=== PATIENT | male | born 1965 | race Two or more races ===

== ENCOUNTER 2025-04-25 08:58 | Inpatient (IN) | payer MEDICAID, OTHER ==
[~2025-04-25] VITALS: Ht 170.2 cm; Wt 79.1 kg
--- NOTE | 2025-04-25 09:18 | ED.PDOC ---
History of present illness HPI Comments HPI: This is a 59 year old male CHAA presenting to the ED with chief complaint of N/V. Patient reports that he has been experiencing general malaise with associated nausea, vomiting, frequent urination, and excessive thirst for the past 2 days. Patient relays that he took his BG this morning and it came back as "high." EMS states that their glucometer read 595 on scene and patient has admitted he has not taken any Metformin for the past 2 weeks. Patient denies any abdominal pain, diarrhea, dizziness, fever, chills, chest pain, or SOB. Initial Vitals BP: HR: RR: O2: Temp: Past Medical History: DM on metformin Past Surgical History: Tonsillectomy Social History: Denies ETOH, smoking, and drug use. Medications: Metformin, non-compliant Allergies: NKDA HPI: Poor Historian. No abdominal pain. REVIEW OF SYSTEMS: CONSTITUTIONAL: Denies acute: fever, diaphoresis, chills, HEAD: Denies acute: headache, photophobia Eyes: Denies acute: Double vision, vision loss, eye pain, eye discharge. EARS: Denies acute: tinnitus, hearing loss, ear discharge, ear pain, THROAT: Denies acute: sore throat, swelling, difficulty swallowing , pain with swallowing, change in voice. NECK: Denies acute: neck pain, neck swelling, stiff neck. HEART: Denies acute : chest pain, palpitations, LUNGS: Denies acute: SOB, wheezing, cough, hemoptysis ABDOMEN: Denies acute: abdominal pain, diarrhea, melena , hematemesis, hematochezia SKIN: Denies acute: rash, redness, lesions, itchiness. EXTREMITIES: Denies acute: calf pain, numbness, tingling, weakness, denies pain in extremity. Denies acute: Low back pain. Neuro: Denies acute: focal neurological deficit, motor or sensory focal neurological deficit, tremors, seizure like activity, confusion, dizziness, change in mental status, loss of bowel or bladder function, cauda equina like symptoms. : Denies acute: dysuria, hematuria, flank pain, PSYCH: Denies acute: hallucination, suicidal ideation, homicidal ideation. PHYSICAL EXAM: General: ----mild----acute distress, awake and alert. Head: normocephalic, atraumatic. Neck: supple, trachea is midline, no swelling. Throat: Normal phonation. Eyes:, no erythema, no purulent discharge, no proptosis, no icterus. Heart: regular rate, regular rhythm, no significant murmur appreciated. Lungs: no apparent respiratory distress, Able to speak in full sentences. No wheezing, no rhonchi, no crackles. No stridors Clear to auscultation bilaterally. Abdomen: non tender to palpation, non distended, soft, no guarding, no rebound, + bowel sounds. Neuro: Awake, Alert, oriented to name, self, situation, follows commands GCS=15. Speech is normal. Skin: no petechia, no purpura, no cyanosis, non-pale, not jaundice. Lower extremities: --no - Pitting edema no deformity, no focal swelling, no calf TTP. Makes eye contact. moves all four extremities. Face: no apparent facial droop. ED COURSE: DISCLAIMER: This medical document was created using an electronic medical record system with voice recognition software and computerized dictation system. Although this document has been carefully reviewed, there might still be some phonetic and typographical errors. Occasional wrong-word or "sound-alike" substitutions may have occurred due to the inherent limitations of voice recognition software. These areas are purely typographical due to imperfections of the software programs and do not reflect any compromise in the patient's medical care. Please read the chart carefully and recognize, using context, where these substitutions have occurred. Chief Complaint: Nausea/Vomiting Time Seen by MD: 09:16 History of present illness: Medications, Allergies Allergies: Coded Allergies: NO KNOWN ALLERGIES (Unverified , 04/25/25) Information Source: Patient, Emergency Med Personnel Mode of Arrival: EMS Was a procedure done? Was a procedure done?: No X-Ray, Labs, Meds, VS Vital Signs Date Time Temp Pulse Resp B/P (MAP) Pulse Ox O2 Delivery O2 Flow Rate FiO2 04/25/25 09:09 98.2 120 18 156/100 95 98.2 Lab Test 04/25/25 09:41 04/25/25 09:27 Range/Units Blood Gas Specimen Type Arterial Blood Gas Sample Site Right radial Blood Gas Patient Temperature 37.0 Arterial Blood Date Drawn [id number] Arterial Blood pH 7.606 *H 7.350-7.450 Arterial Blood Partial Pressure CO2 16.7 *L 35.0-48.0 mmHg Arterial Blood Partial Pressure O2 104.8 83.0-108.0 mmHg Arterial Blood HCO3 16.3 L 21.0-28.0 mmol/L Arterial Blood Oxygen Saturation 98.8 H 94.0-98.0 % Arterial Blood Base Excess -1.6 -2.0-3.0 mmol/L Arterial Blood Oxyhemoglobin 96.8 94.0-98.0 % Arterial Blood Carboxyhemoglobin 1.3 0.5-1.5 % Arterial Blood Methemoglobin 0.7 0.0-1.5 % Tacho Test Yes Blood Gas Total Hemoglobin 16.40 13.5-17.5 g/dL Blood Gas Liter Flow 0.00 Blood Gas Modality Room air FiO2 % 21.0 Blood Gas Critical Value Read Back Yes Blood Gas Notified Whom eduin Lowry Blood Gas Notified Time [id number] Blood Gas Notified By Personal Assistant david lyons White Blood Count 5.4 4.4-10.8 10^3/uL Red Blood Count 4.83 4.5-5.90 10^6/uL Hemoglobin 17.1 13.5-17.5 g/dL Hematocrit 48.4 41.0-53.0 % Mean Corpuscular Volume 100.2 H 80.0-100.0 fL Mean Corpuscular Hemoglobin 35.3 H 28.0-32.0 pg Mean Corpuscular Hemoglobin Concent 35.3 32.0-36.0 g/dL Red Cell Distribution Width 13.9 11.8-14.3 % Platelet Count 131 L 140-450 10^3/uL Mean Platelet Volume 8.8 6.9-10.8 fL Neutrophils (%) (Auto) 75.9 37.0-80.0 % Lymphocytes (%) (Auto) 9.6 L 10.0-50.0 % Monocytes (%) (Auto) 14.4 H 0.0-12.0 % Eosinophils (%) (Auto) 0.0 0.0-7.0 % Basophils (%) (Auto) 0.1 0.0-2.0 % Neutrophils # (Auto) 4.1 1.6-8.6 10 ^3/uL Lymphocytes # (Auto) 0.5 0.4-5.4 10 ^3/uL Monocytes # (Auto) 0.8 0-1.3 10 ^3/uL Eosinophils # (Auto) 0 0-0.8 10 ^3/uL Basophils # (Auto) 0 0-0.2 10 ^3/uL Nucleated Red Blood Cells 0.0 % Sodium Level 122 L 136-145 mmol/L Potassium Level 3.2 L 3.5-5.1 mmol/L Chloride Level 84 L 98-107 mmol/L Carbon Dioxide Level 17 L 20-31 mmol/L Anion Gap 21 H 5-15 Blood Urea Nitrogen 7 L 9-23 mg/dL Creatinine 1.18 0.700-1.30 mg/dL Glomerular Filtration Rate Calc 71 >90 mL/min BUN/Creatinine Ratio 5.9 L 10.0-20.0 Serum Glucose 488 *H 74-106 mg/dL Lactic Acid Level 7.2 *H 0.4-2.0 mmol/L Calcium Level 9.7 8.7-10.4 mg/dL Magnesium Level 1.9 1.6-2.6 mg/dL Total Bilirubin 1.7 H 0.2-1.0 mg/dL Aspartate Amino Transferase (AST) 31 13-40 U/L Alanine Aminotransferase (ALT) 27 7-40 U/L Alkaline Phosphatase 65 46-116 U/L Total Protein 7.9 5.7-8.2 g/dL Albumin 4.9 H 3.2-4.8 g/dL Beta-Hydroxybutyric Acid 4.104 H < 0.4 mmol/L Current Medications Medications (Trade) Dose Ordered Sig/Timmy Route Start Time Stop Time Status Last Admin Sodium Chloride 1,000 ml @ 1,000 mls/hr Q1H ONCE IV 04/25/25 09:15 04/25/25 10:14 DC 04/25/25 09:41 Ondansetron HCl (Zofran) 8 mg ONCE ONCE IV 04/25/25 09:15 04/25/25 09:16 DC 04/25/25 09:41 Insulin Human Regular (InsuLIN R) 10 units ONCE ONCE IV 04/25/25 09:15 04/25/25 09:16 DC 04/25/25 09:44 Time of 1ST Reevaluation: 10:15 Reevaluation 1ST: Unchanged Patient Education/Counseling: Diagnosis, Treatment Family Education/Counseling: No Family Present Departure 1 Departure Time of Disposition: 10:40 Impression: Primary Impression: Hyperglycemia Additional Impression: Elevated lactic acid level Disposition: ADMITTED INPATIENT Critical Care Note Critical Care Time?: No I personally scribed for SUGAR HI DO ([email or web address]) on 04/25/25 at 09:18. Electronically submitted by Garland Garibay ([email or web address]). I personally scribed for SUGAR HI DO ([email or web address]) on 04/25/25 at 10:41. Electronically submitted by Garland Garibay ([email or web address]). SUGAR HI DO Apr 25, 2025 09:18
[2025-04-25] MEDS: SODIUM CHLORIDE 0.9% 1,000 ML IV ONE (09:41)
[2025-04-25] MEDS: ONDANSETRON HCL 4 MG/2 ML VIAL IV ONE (09:41)
[2025-04-25] MEDS: InsuLIN REG 1unit/0.01ml Soln (100units/ml) IV ONE (09:44)
[2025-04-25 09:49] LABS: Hematocrit 48.4 % (41.0-53.0); Hemoglobin 17.1 g/dL (13.5-17.5); Mean Corpuscular Hemoglobin 35.3 pg (28.0-32.0); Mean Corpuscular Volume 100.2 fL (80.0-100.0); Nucleated Red Blood Cells % 0.0 %
[2025-04-25 09:58] LABS: Base Excess -1.6 mmol/L (-2.0-3.0)
[2025-04-25 10:08] LABS: Chloride 84 mmol/L (98-107); Potassium 3.2 mmol/L (3.5-5.1); Sodium 122 mmol/L (136-145)
[2025-04-25 10:17] LABS: Lactic Acid w/Reflex 7.2 mmol/L (0.4-2.0)
[2025-04-25 10:26] LABS: Anion Gap 21 (5-15)
[2025-04-25 10:27] LABS: Calcium 9.7 mg/dL (8.7-10.4)
[2025-04-25 10:29] LABS: Carbon Dioxide 17 mmol/L (20-31)
[2025-04-25 10:32] LABS: Alkaline Phosphatase 65 U/L (46-116); BUN/Creatinine Ratio 5.9 (10.0-20.0); Magnesium 1.9 mg/dL (1.6-2.6); Total Protein 7.9 g/dL (5.7-8.2)
[2025-04-25 10:33] LABS: Alanine Aminotransferase 27 U/L (7-40)
[2025-04-25 10:34] LABS: Albumin 4.9 g/dL (3.2-4.8); Blood Urea Nitrogen 7 mg/dL (9-23)
[2025-04-25 10:35] LABS: Bilirubin, Total 1.7 mg/dL (0.2-1.0); Glucose 488 mg/dL (74-106)
[2025-04-25] MEDS: SODIUM CHLORIDE 0.9% 2,000 ML IV ONE (10:45)
[2025-04-25] MEDS: cefTRIAXone 1GM/50ML D5W 50 ML IV ONE (11:27)
[2025-04-25 11:46] VITALS: PULSE 109; RESP 22; O2SAT 100
[2025-04-25] MEDS ORDERED: ATOR40TA52 PO (12:23)
[2025-04-25] MEDS ORDERED: LISI2.5T47 PO (12:23)
[2025-04-25] MEDS ORDERED: ERGO2000 PO (12:23)
--- NOTE | 2025-04-25 12:29 | DVHHP2 ---
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 He states he noticed that his sugars has been high he checked at one time last week when he is supposed to have an EGD was 480 so they canceled the EGD so he comes in today because he was not feeling well he feels weak numbness malaise frequent urination excessive thirst for the last two days when paramedics were called patient had a high glucose on the monitor patient states he usually takes metformin but he has been out of that patient currently denies any chest pain no shortness with the breath no abdominal pain when evaluating patient's labs and imaging from ED normal saline was given ceftriaxone insulin Zofran no CBC was unremarkable pH was 7.06 CO2 was 16.7 on ABG sodium was 122 potassium was 3.2 chloride was 84 CO2 was 17 gap was 21 glucose was 468 lactate was 7.2 total bili is 1.7 beta age is 4.104. With these findings we will admit patient to [facility] for DKA. Patient nurse had check glucose at bedside was 195. With these findings did order repeat stat CBC ABG. Past Medical History See HPI above Past Surgical History See HPI above Family History Reviewed, non-contributory to the management of this case. Past Social History Patient does smoke CBD oil does admit to alcohol use frequent last use was two days ago no history withdrawal seizure Review of Systems Constitutional: No: Fever, Chills, Sweats, Weakness, Malaise, Other Eyes: No: Pain, Vision change, Conjunctivae inflammation, Eyelid inflammation, Other, Redness ENT: No: Ear pain, Ear discharge, Nose pain, Nose discharge, Nose congestion, Mouth pain, Mouth swelling, Throat pain, Throat swelling, Other Respiratory: No: Cough, Dry, Shortness of breath, SOB with excertion, Wheezing, Hemoptysis, Pleuritic Pain, Sputum, Wheezing, Other Cardiovascular: No: Chest Pain, Palpitations, Orthopnea, Paroxysmal Noc. Dyspnea, Edema, Lt Headedness, Other Gastrointestinal: Nausea, Vomiting, Diarrhea; No: Abdominal Pain, Constipation, Melena, Hematochezia, Other Genitourinary: No Dysuria, No Frequency, No Incontinence, No Hematuria, No Retention, No Other Musculoskeletal: No: other, neck pain, shoulder pain, arm pain, back pain, hand pain, leg pain, foot pain Skin: No: Rash, Lesions, Jaundice, Bruising, Other Neurological: No: Weakness, Numbness, Incoordination, Change in speech, Confusion, Seizures, Other Allergies: Coded Allergies: NO KNOWN ALLERGIES (Unverified , 04/25/25) Medications Current Medications Medications Dose Ordered Sig/Timmy Route Start Time Stop Time Status Last Admin Dose Admin Diagnostic Test (Pha) 1 strip IQ4HR 04/25/25 16:00 UNV Insulin Human Regular IQ4HR SC 04/25/25 16:00 UNV Dextrose 50 ml UD PRN IV 04/25/25 12:30 UNV Sodium Chloride 1,000 ml @ 120 mls/hr Q8H20M IV 04/25/25 12:30 UNV Ondansetron HCl 4 mg Q4HP PRN IV 04/25/25 12:30 UNV Docusate Sodium 100 mg BIDPRN PRN PO 04/25/25 12:30 UNV Morphine Sulfate 2 mg Q4HPRN PRN IV 04/25/25 12:30 UNV Enoxaparin Sodium 40 mg DAILY SC 04/25/25 12:30 UNV Nitroglycerin 0.4 mg Q5MINP PRN SL 04/25/25 12:30 UNV Patient Own Medication 1 tab QPM PO 04/25/25 18:00 UNV Patient Own Medication 1 tab DAILY PO 04/26/25 10:00 UNV Exam Vital Signs Vital Signs Date Time Temp Pulse Resp B/P (MAP) Pulse Ox O2 Delivery O2 Flow Rate FiO2 04/25/25 11:46 109 22 100 Room Air* 0 21 04/25/25 11:46 97.7 131/83 (99) 97.7 General Appearance: Alert, Oriented X3, Cooperative, No acute distress HEENT: Atraumatic, PERRLA, EOMI, Mucous membr. moist/pink Respiratory: Clear to auscultation, Normal air movement Cardiovascular: Regular rate, Normal S1, Normal S2, No murmurs Abdominal: Normal bowel sounds, Soft, No tenderness, No hepatospenomegaly, No masses Extremities: No clubbing, No cyanosis, No edema, Normal pulses, No tenderness/swelling Skin: No rashes, No breakdown, No significant lesion Neuro: Normal gait, Normal speech, Strength at 5/5 X4 ext, Normal tone, Sensation intact, Cranial nerves 3-12 NL Psych/Mental Status: Mental status NL, Mood NL Labs/Xrays I reviewed labs, imaging CT scan abdomen pelvis, EKG and all diagnostic studies on this patient from ED records and the medical chart Labs Test 04/25/25 12:09 04/25/25 11:27 04/25/25 09:41 04/25/25 09:27 Range/Units POC Glucose 194 H 70-106 mg/dl Lactic Acid Level 3.9 *H 0.4-2.0 mmol/L Blood Gas Specimen Type Arterial Blood Gas Sample Site Right radial Blood Gas Patient Temperature 37.0 Arterial Blood Date Drawn [id number] Arterial Blood pH 7.606 *H 7.350-7.450 Arterial Blood Partial Pressure CO2 16.7 *L 35.0-48.0 mmHg Arterial Blood Partial Pressure O2 104.8 83.0-108.0 mmHg Arterial Blood HCO3 16.3 L 21.0-28.0 mmol/L Arterial Blood Oxygen Saturation 98.8 H 94.0-98.0 % Arterial Blood Base Excess -1.6 -2.0-3.0 mmol/L Arterial Blood Oxyhemoglobin 96.8 94.0-98.0 % Arterial Blood Carboxyhemoglobin 1.3 0.5-1.5 % Arterial Blood Methemoglobin 0.7 0.0-1.5 % Tacho Test Yes Blood Gas Total Hemoglobin 16.40 13.5-17.5 g/dL Blood Gas Liter Flow 0.00 Blood Gas Modality Room air FiO2 % 21.0 Blood Gas Critical Value Read Back Yes Blood Gas Notified Whom eduin Lowry Blood Gas Notified Time [id number] Blood Gas Notified By Bookkeeper Assistant david lyons White Blood Count 5.4 4.4-10.8 10^3/uL Red Blood Count 4.83 4.5-5.90 10^6/uL Hemoglobin 17.1 13.5-17.5 g/dL Hematocrit 48.4 41.0-53.0 % Mean Corpuscular Volume 100.2 H 80.0-100.0 fL Mean Corpuscular Hemoglobin 35.3 H 28.0-32.0 pg Mean Corpuscular Hemoglobin Concent 35.3 32.0-36.0 g/dL Red Cell Distribution Width 13.9 11.8-14.3 % Platelet Count 131 L 140-450 10^3/uL Mean Platelet Volume 8.8 6.9-10.8 fL Neutrophils (%) (Auto) 75.9 37.0-80.0 % Lymphocytes (%) (Auto) 9.6 L 10.0-50.0 % Monocytes (%) (Auto) 14.4 H 0.0-12.0 % Eosinophils (%) (Auto) 0.0 0.0-7.0 % Basophils (%) (Auto) 0.1 0.0-2.0 % Neutrophils # (Auto) 4.1 1.6-8.6 10 ^3/uL Lymphocytes # (Auto) 0.5 0.4-5.4 10 ^3/uL Monocytes # (Auto) 0.8 0-1.3 10 ^3/uL Eosinophils # (Auto) 0 0-0.8 10 ^3/uL Basophils # (Auto) 0 0-0.2 10 ^3/uL Nucleated Red Blood Cells 0.0 % Sodium Level 122 L 136-145 mmol/L Potassium Level 3.2 L 3.5-5.1 mmol/L Chloride Level 84 L 98-107 mmol/L Carbon Dioxide Level 17 L 20-31 mmol/L Anion Gap 21 H 5-15 Blood Urea Nitrogen 7 L 9-23 mg/dL Creatinine 1.18 0.700-1.30 mg/dL Glomerular Filtration Rate Calc 71 >90 mL/min BUN/Creatinine Ratio 5.9 L 10.0-20.0 Serum Glucose 488 *H 74-106 mg/dL Calcium Level 9.7 8.7-10.4 mg/dL Magnesium Level 1.9 1.6-2.6 mg/dL Total Bilirubin 1.7 H 0.2-1.0 mg/dL Aspartate Amino Transferase (AST) 31 13-40 U/L Alanine Aminotransferase (ALT) 27 7-40 U/L Alkaline Phosphatase 65 46-116 U/L Total Protein 7.9 5.7-8.2 g/dL Albumin 4.9 H 3.2-4.8 g/dL Beta-Hydroxybutyric Acid 4.104 H < 0.4 mmol/L SEPSIS Sepsis Screen Date sepsis recognized/suspect: Apr 25, 2025 Time Sepsis recognized/suspect: 1151 Recent Procedure: No On Antibiotic Therapy: No Respiratory Rate >20: Yes Heart Rate >90: Yes Temp<36 C (96.8 F) or >38.3 C: No SBP <90 or MAP <65 mmHG: No New Acute Mental Status Change: No Is the patient on CPAP, BIPAP,: No Physician Orders Telephonic Rn (04/25/25 ) Urinalysis (04/25/25 09:10) Electrocardigram (04/25/25 09:10) Abg W/ Co-Ox (04/25/25 09:58) Sodium Chloride 0.9% (04/25/25 10:45) Abg W/ Co-Ox (04/25/25 12:10) Basic Metabolic Panel (04/25/25 12:10) Lactic Acid W/ Reflex Order (04/25/25 12:10) Glucose Blood (Accu-Chek Comfort Curve T (04/25/25 16:00) Insulin R (Human) (Insulin R) (04/25/25 16:00) Dextrose 50% Syringe (04/25/25 12:30) Admit (04/25/25 12:22) Allergies (04/25/25 12:22) Code Status (04/25/25 12:22) Sodium Chloride 0.9% (04/25/25 12:30) Ondansetron Hcl (Zofran) (04/25/25 12:30) Docusate Sodium Capsule (Colace Capsule) (04/25/25 12:30) Complete Blood Count (04/26/25 04:00) Comprehensive Metabolic Panel (04/26/25 04:00) Cardiac Diet-2gna,Lofat,Lochol (04/25/25 Lunch) Condition: Stable (04/25/25 12:22) BRP (04/25/25 12:22) Morphine Sulfate Injection (04/25/25 12:30) Sequential Compression Device (04/25/25 ) Enoxaparin Sodium (Lovenox) (04/25/25 12:30) Nitroglycerin Sublingual (Ntrostat Subli (04/25/25 12:30) Stat Ekg For Chest Pain (04/25/25 12:22) Notify Of Changes From Base (04/25/25 12:22) Yarn Wrapper For 24 Hours (04/25/25 12:22) Emergency Dysrhythmia Protocol (04/25/25 12:22) Rhythm Strips Once Every Shift (04/25/25 12:22) Oxygen By Nasal Cannula (04/25/25 12:22) Potassium Er Tablet (Klor-Con Tablet) (04/25/25 12:30) (Nf) Atorvastatin Calcium (04/25/25 18:00) (Nf) Lisinopril (04/26/25 10:00) Urine Sodium (04/25/25 12:27) Osmolality Urine (04/25/25 12:27) Osmolality, Serum (04/25/25 12:) Vital Signs Date Time Temp Pulse Resp B/P (MAP) Pulse Ox O2 Delivery O2 Flow Rate FiO2 04/25/25 11:46 109 22 100 Room Air* 0 21 04/25/25 11:46 97.7 109 22 131/83 (99) 100 97.7 04/25/25 09:09 98.2 120 18 156/100 95 98.2 Laboratory Tests Test 04/25/25 09:27 04/25/25 11:27 Lactic Acid Level 7.2 mmol/L (0.4-2.0) *H 3.9 mmol/L (0.4-2.0) *H White Blood Count 5.4 10^3/uL (4.4-10.8) Medications Medications Dose Ordered Sig/Timmy Route Start Time Stop Time Status Last Admin Dose Admin Ceftriaxone Sodium 50 ml @ 100 mls/hr ONCE ONCE IV 04/25/25 10:45 04/25/25 11:14 DC 04/25/25 11:27 100 MLS/HR Insulin Human Regular 10 units ONCE ONCE IV 04/25/25 09:15 04/25/25 09:16 DC 04/25/25 09:44 10 UNITS Ondansetron HCl 8 mg ONCE ONCE IV 04/25/25 09:15 04/25/25 09:16 DC 04/25/25 09:41 8 MG Sodium Chloride 1,000 ml @ 1,000 mls/hr Q1H ONCE IV 04/25/25 09:15 04/25/25 10:14 DC 04/25/25 09:41 1,000 MLS/HR Sodium Chloride 2,000 ml @ 1,000 mls/hr Q2H ONCE IV 04/25/25 10:45 04/25/25 12:44 04/25/25 10:45 1,000 MLS/HR Assessment/Plan Assessment/Plan Acute DKA without coma history of type 2 diabetes beta oh elevated, gap elevated bicarb low, and anion gap, elevated blood glucose IV hydration ns(2L ) provided in er Initiated DKA protocol Every hour Accu-Check Administer sodium bicarb if pH less than 6.9 BMP every 6 hours until gap Replace electrolyte as needed Repeat ABG now NPO xcept ice chips Diabetic education pt was given insulin 10 units iv Acute hypovolemic shock in setting of dka and dehydration ivf bolus of 2 liters provided cont ivf consider levophed keep SBP greater than 90 mmHg fu lactic acute metabolic acidosis likely in setting of acute dka found on cmp ordered abg start bicarb drip if PH <6.9 monitor for worsening numbers acute Hyponatremia likely in setting of DKA/vomiting cont iv hydration Monitor sodium ordered serum os and urine os follow up results Acute tachycardia in setting of dka cont ivf hydration fu mag and phos level acute hyperkalemia no treatment at this time will hydrate and follow up k as providing hydration monitor k acute etoh abuse ordered ativan prn ordered librium can consult sw for resources fen/ppx no dvt ppx since ambulatory npo until dka improves protonix for stress ulcer prevention ivf will consider insulin drip considering the labs results plan admit to icu for management of dka Plan discussed with: Patient My Orders Orders - SANGEETA VARGAS DNP Procedure Category Date Status Time Abg W/ Co-Ox RT 04/25/25 Logged 12:10 Basic Metabolic Panel LAB 04/25/25 Logged 12:10 Lactic Acid W/ Reflex LAB 04/25/25 Logged Order 12:10 Glucose Blood PHA 04/25/25 Logged (Accu-Chek Comfort 16:00 Insulin R (Human) PHA 04/25/25 Logged (Insulin R) 16:00 Dextrose 50% Syringe PHA 04/25/25 Logged 12:30 Admit ADMIT 04/25/25 Transmitted 12:22 Allergies TOMER 04/25/25 In Process 12:22 Code Status CODE 04/25/25 Transmitted 12:22 Sodium Chloride 0.9% PHA 04/25/25 Logged 12:30 Ondansetron Hcl PHA 04/25/25 Logged (Zofran) 12:30 Docusate Sodium PHA 04/25/25 Logged Capsule (Colace 12:30 Complete Blood Count LAB 04/26/25 Verified 04:00 Comprehensive LAB 04/26/25 Verified Metabolic Panel 04:00 Cardiac DIET 04/25/25 Transmitted Diet-2gna,Lofat,Lochol Lunch Condition: Stable TOMER 04/25/25 In Process 12:22 BRP TOMER 04/25/25 In Process 12:22 Morphine Sulfate PHA 04/25/25 Logged Injection 12:30 Sequential TOMER 04/25/25 In Process Compression Device Enoxaparin Sodium PHA 04/25/25 Logged (Lovenox) 12:30 Nitroglycerin PHA 04/25/25 Logged Sublingual (Ntrostat 12:30 Stat Ekg For Chest [facility] 04/25/25 In Process Pain 12:22 Notify Md Of Changes [facility] 04/25/25 In Process From Base 12:22 Yarn Wrapper For [facility] 04/25/25 In Process 24 Hours 12:22 Emergency Dysrhythmia [facility] 04/25/25 In Process Protocol 12:22 Rhythm Strips Once [facility] 04/25/25 In Process Every Shift 12:22 Oxygen By Nasal RT 04/25/25 Transmitted Cannula 12:22 Potassium Er Tablet PHA 04/25/25 Logged (Klor-Con Tablet) 12:30 (Nf) Atorvastatin PHA 04/25/25 Logged Calcium 18:00 (Nf) Lisinopril PHA 04/26/25 Logged 10:00 Urine Sodium LAB 04/25/25 Transmitted 12:27 Osmolality Urine LAB 04/25/25 Transmitted 12:27 Osmolality, Serum LAB 04/25/25 Transmitted 12:27 Date of Service: Apr 25, 2025 Billing Provider: SANGEETA VARGAS DNP Common Visit Codes: [id number] INP/OBS CARE (HIGH), [id number] CARE 30- 74 MIN (Total critical care time: Approximately 45 minutes This critical care time included obtaining a history; examining the patient; pulse oximetry; ordering and review of studies; arranging urgent treatment with development of a management plan; evaluation of patient's response to treatment; frequent reassessment; and, discussions with other providers.) SANGEETA VARGAS [facility] Apr 25, 2025 12:29
[2025-04-25] MEDS ORDERED: ONDANSETRON HCL 4 MG/2 ML VIAL IV PRN (12:30)
[2025-04-25] MEDS ORDERED: DOCUSATE SOD 100 MG CAP PO PRN (12:30)
[2025-04-25] MEDS ORDERED: NITROGLYCERIN 0.4 MG SL TAB SL PRN (12:30)
[2025-04-25] MEDS ORDERED: DEXTROSE (50%) 50ML SYRG IV PRN (12:30)
[2025-04-25 12:31] LABS: Base Excess -2.0 mmol/L (-2.0-3.0)
[2025-04-25 13:00] LABS: Urine Protein, UAD 1+ (Negative)
[2025-04-25 14:15] LABS: Anion Gap 13 (5-15); Calcium 8.1 mg/dL (8.7-10.4); Carbon Dioxide 21 mmol/L (20-31); Chloride 96 mmol/L (98-107); Potassium 3.1 mmol/L (3.5-5.1); Sodium 130 mmol/L (136-145)
[2025-04-25 14:20] LABS: BUN/Creatinine Ratio 8.7 (10.0-20.0)
[2025-04-25 14:22] LABS: Blood Urea Nitrogen 6 mg/dL (9-23); Glucose 211 mg/dL (74-106)
[2025-04-25] MEDS: SODIUM CHLORIDE 0.9% 1,000 ML IV SCH (14:31)
[2025-04-25] MEDS: ENOXAPARIN SOD 40 MG/0.4 ML SYRINGE SC SCH (14:33)
[2025-04-25] MEDS: LISINOPRIL 5 MG TAB PO SCH (14:34)
[2025-04-25] MEDS: POTASSIUM CHL 20 Meq TABLET PO ONE ×2 (14:35→16:16)
[2025-04-25 15:48] LABS: Magnesium 1.6 mg/dL (1.6-2.6)
[2025-04-25] MEDS: ACCU-CHEK COMFORT CURVE STRIP VI SCH (16:26)
[2025-04-25] MEDS: InsuLIN REG 1unit/0.01ml Soln (100units/ml) SC SCH (16:26)
[2025-04-25 17:51] VITALS: BP 114/72; PULSE 94; RESP 19; TEMP 99.7; O2SAT 98
[2025-04-25] MEDS: MORPHINE SULFATE INJ 2 MG/ml SYRG IV PRN (18:41)
[2025-04-25 20:00] VITALS: PULSE 68; PULSE 87; RESP 18; O2SAT 98
[2025-04-25] MEDS: ATORVASTATIN 20 MG TAB PO SCH (20:54)
[2025-04-25 21:00] VITALS: BP 96/67; PULSE 81; RESP 19; TEMP 98.1; O2SAT 95
[2025-04-26] VITALS (8 sets, daily range): BP systolic 96–109; BP diastolic 59–76; PULSE 72–111; RESP 16–19; TEMP 97.3–98.2; O2SAT 92–99
[2025-04-26 08:19] LABS: Hematocrit 42.8 % (41.0-53.0); Hemoglobin 15.3 g/dL (13.5-17.5); Mean Corpuscular Hemoglobin 35.3 pg (28.0-32.0); Mean Corpuscular Volume 99.1 fL (80.0-100.0); Nucleated Red Blood Cells % 0.1 %
[2025-04-26 08:23] LABS: Alanine Aminotransferase 22 U/L (7-40); Albumin 4.1 g/dL (3.2-4.8); Alkaline Phosphatase 46 U/L (46-116); Anion Gap 10 (5-15); BUN/Creatinine Ratio 10.1 (10.0-20.0); Bilirubin, Total 1.2 mg/dL (0.2-1.0); Calcium 9.2 mg/dL (8.7-10.4); Carbon Dioxide 23 mmol/L (20-31); Chloride 101 mmol/L (98-107); Total Protein 6.6 g/dL (5.7-8.2)
[2025-04-26 08:33] LABS: Blood Urea Nitrogen 8 mg/dL (9-23); Glucose 136 mg/dL (74-106); Potassium 3.4 mmol/L (3.5-5.1); Sodium 134 mmol/L (136-145)
--- NOTE | 2025-04-26 14:31 | DVHPN2 ---
Subjective Patient is seen at bedside today, doing well. Reviewed: Care Plan Changes from previous H/P or p: No Changes General: Per HPI Eyes: No Pain, No Vision change, No Conjunctivae inflammation, No Eyelid inflammation, No Other, No Redness ENT: No Ear pain, No Ear discharge, No Nose pain, No Nose discharge, No Nose congestion, No Mouth pain, No Mouth swelling, No Throat pain, No Throat swelling, No Other Cardiovascular: No Chest Pain, No Palpitations, No Orthopnea, No Paroxysmal Noc. Dyspnea, No Edema, No Lt Headedness, No Other Respiratory: No Cough, No Dry, No Shortness of breath, No SOB with excertion, No Wheezing, No Hemoptysis, No Pleuritic Pain, No Sputum, No Other Gastrointestinal: Nausea, Vomiting; No Abdominal Pain; Diarrhea; No Constipation, No Melena, No Hematochezia, No Other Genitourinary: No Dysuria, No Frequency, No Incontinence, No Hematuria, No Retention, No Other Musculoskeletal: No other, No neck pain, No shoulder pain, No arm pain, No back pain, No hand pain, No leg pain, No foot pain Skin: No Rash, No Lesions, No Jaundice, No Bruising, No Other Objective Vitals Vital Signs Date Time Temp Pulse Resp B/P (MAP) Pulse Ox O2 Delivery O2 Flow Rate FiO2 04/26/25 12:37 98.0 77 17 109/75 (86) 97 98.0 04/26/25 08:00 Room Air* 0 21 Intake/Output Intake and Output 04/26/25 07:00 Intake Total 3790 ml Output Total 950 ml Balance 2840 ml Intake Oral 500 ml IV Total 3290 ml Output Urine Total 950 ml Exam GEN: Healthy appearing, well-developed, NAD. HEENT: NC/AT; MMM. CV: RRR, no m/r/g. LUNGS: CTAB, no w/r/c. ABD: Soft, NT/ND, NBS, no masses or organomegaly. EXT: skin Warm, well perfused. no rashes. No clubbing, cyanosis, or edema. NEURO: Ambulating with no limitations. No focal deficits. Diminished positional sensation in feet bilaterally Medications Current Medications Medications Dose Ordered Sig/Timmy Route Start Time Stop Time Status Last Admin Dose Admin Diagnostic Test (Pha) 1 strip IQ4HR 04/25/25 16:00 04/26/25 11:54 1 STRIP Insulin Human Regular IQ4HR SC 04/25/25 16:00 04/26/25 11:58 4 UNITS Dextrose 50 ml UD PRN IV 04/25/25 12:30 Sodium Chloride 1,000 ml @ 120 mls/hr Q8H20M IV 04/25/25 12:30 04/26/25 05:10 120 MLS/HR Ondansetron HCl 4 mg Q4HP PRN IV 04/25/25 12:30 Docusate Sodium 100 mg BIDPRN PRN PO 04/25/25 12:30 Morphine Sulfate 2 mg Q4HPRN PRN IV 04/25/25 12:30 04/26/25 11:55 2 MG Enoxaparin Sodium 40 mg DAILY SC 04/25/25 13:55 04/26/25 09:22 40 MG Nitroglycerin 0.4 mg Q5MINP PRN SL 04/25/25 12:30 Atorvastatin Calcium 40 mg HS PO 04/25/25 22:00 04/25/25 20:54 40 MG Lisinopril 2.5 mg DAILY PO 04/25/25 13:53 04/26/25 09:22 2.5 MG Chlordiazepoxide HCl 50 mg Q12HR PO 04/26/25 10:00 04/26/25 22:01 04/26/25 09:21 50 MG Chlordiazepoxide HCl 25 mg Q12HR PO 04/27/25 10:00 04/27/25 22:01 Chlordiazepoxide HCl 25 mg QAM PO 04/28/25 07:00 04/28/25 07:01 Sodium Chloride 1,000 ml @ 75 mls/hr [id number] IV 04/26/25 13:45 Empaglifozin 10 mg DAILY PO 04/27/25 10:00 Duloxetine HCl 30 mg DAILY PO 04/27/25 10:00 Laboratory Results Laboratory Tests 04/26/25 06:13 Chemistry Test 04/26/25 06:13 Albumin 4.1 g/dL (3.2-4.8) Calcium Level 9.2 mg/dL (8.7-10.4) Total Protein 6.6 g/dL (5.7-8.2) LFT Test 04/26/25 06:13 Alanine Aminotransferase (ALT) 22 U/L (7-40) Alkaline Phosphatase 46 U/L (46-116) Aspartate Amino Transferase (AST) 37 U/L (13-40) Total Bilirubin 1.2 mg/dL (0.2-1.0) H HgA1c, TSH Test 04/26/25 06:13 Hemoglobin A1c 11.9 % A1C (<5.7) H Thyroid Stimulating Hormone (TSH) 1.78 uIU/mL (0.55-4.78) Urinalysis Test 04/25/25 06:49 04/25/25 09:49 Urine Osmolality 624 mOsm/kg Urine Sodium < 10 mmol/L (40-220) L Urine Color Colorless (Yellow) Urine Clarity Clear (Clear) Urine pH 6.0 (5.0-9.0) Urine Specific [place] 1.032 (1.001-1.035) Urine Protein 1+ (Negative) H Urine Ketones 2+ (Negative) H Urine Blood 3+ /uL (Negative) H Urine Nitrite Negative (Negative) Urine Bilirubin Negative (Negative) Urine Urobilinogen Normal mg/dL (Negative) Urine Leukocyte Esterase Negative /uL (Negative) Urine RBC 36 /hpf (0 - 3) Urine Microscopic WBC 1 /HPF (0-3) Urine Squamous Epithelial Cells None seen /hpf (<5) Urine Bacteria None seen /hpf (None Seen) Urine Glucose 4+ mg/dL (Normal) H Labs and/or images reviewed: Labs reviewed by me, Image(s) reviewed by me Assessment/Plan Assessment/Plan 59-year-old male past medical history diabetes neuropathy to hands and feet hyperlipidemia denies any surgical history chief complaint patient states that he has been out of his metformin for the last two weeks he never went to go get a refill. He states he noticed that his sugars has been high he checked at one time last week when he is supposed to have an EGD was 480 so they canceled the EGD so he comes in today because he was not feeling well he feels weak numbness malaise frequent urination excessive thirst for the last two days when paramedics were called patient had a high glucose on the monitor patient states he usually takes metformin but he has been out of that patient currently denies any chest pain no shortness with the breath no abdominal pain when evaluating patient's labs and imaging from ED normal saline was given ceftriaxone insulin Zofran no CBC was unremarkable pH was 7.06 CO2 was 16.7 on ABG sodium was 122 potassium was 3.2 chloride was 84 CO2 was 17 gap was 21 glucose was 468 lactate was 7.2 total bili is 1.7 beta age is 4.104. With these findings we will admit patient to [facility] D[facility]. Patient nurse had check glucose at bedside was 195. With these findings did order repeat stat CBC ABG. 04/26: Patient was here with early DKA, patient was also hyper ventilating causing alkalotic respiratory alkalosis. DKA is now controlled continuing fluids patient denies wanting to go on insulin as his family has had negative outcomes. We will stabilize patient 1 more day as he continues to improve in p.o. tolerance. Need to follow up with her more workup need A1c in labs. Likely discharge tomorrow. Patient will likely be able to go home with added orals, today we will add Jardiance and Cymbalta for diabetic neuropathy. Likely discharge tomorrow. Early DKA Starvation ketosis Diabetes with hyperglycemia and neuropathy Hypotension due to Hypovolemia Metabolic acidosis Hyponatremia Tachycardia Hyperkalemia History of alcohol abuse Continue size and skin Continue IV fluids Patient declining basal insulin We will add Jardiance And Cymbalta neuropathy Diet diabetic Tele Full code Plan discussed with: Patient My Orders Orders - JOHN BOSCH MD Procedure Category Date Status Time Drug Screen LAB 04/26/25 Logged 12:19 Sodium Chloride 0.9% PHA 04/26/25 In Process 13:45 Empagliflozin PHA 04/27/25 In Process (Jardiance) 10:00 Duloxetine Hcl PHA 04/27/25 In Process Capsule (Cymbalta 10:00 Date of Service: Apr 26, 2025 Billing Provider: JOHN BOSCH MD Common Visit Codes: [id number] INP/OBS CARE(HIGH) JOHN BOSCH MD Apr 26, 2025 14:31
[2025-04-26] MEDS: SODIUM CHLORIDE 0.9% 1,000 ML IV SCH (15:12)
[2025-04-26] MEDS: EMPAGLIFLOZIN 10 MG TAB PO ONE (15:13)
[2025-04-27] VITALS (7 sets, daily range): BP systolic 109–132; BP diastolic 70–88; PULSE 74–98; RESP 16–18; TEMP 97.7–97.9; O2SAT 95–99
[2025-04-27] MEDS ORDERED: DEXTROSE (50%) 50ML SYRG IV PRN (01:45)
[2025-04-27] MEDS: InsuLIN REG 1unit/0.01ml Soln (100units/ml) SC SCH (06:54)
[2025-04-27] MEDS: ACCU-CHEK COMFORT CURVE STRIP VI SCH (06:54)
[2025-04-27 08:30] LABS: Alanine Aminotransferase 34 U/L (7-40); Albumin 3.6 g/dL (3.2-4.8); Anion Gap 8 (5-15); BUN/Creatinine Ratio 11.8 (10.0-20.0); Blood Urea Nitrogen 10 mg/dL (9-23); Calcium 9.0 mg/dL (8.7-10.4); Carbon Dioxide 25 mmol/L (20-31); Chloride 105 mmol/L (98-107); Potassium 3.9 mmol/L (3.5-5.1); Sodium 138 mmol/L (136-145); Total Protein 5.7 g/dL (5.7-8.2)
[2025-04-27 08:31] LABS: Alkaline Phosphatase 45 U/L (46-116); Bilirubin, Total 0.7 mg/dL (0.2-1.0); Glucose 183 mg/dL (74-106)
[2025-04-27] MEDS: EMPAGLIFLOZIN 10 MG TAB PO SCH (10:21)
[2025-04-27] MEDS ORDERED: EMPA1TAB PO (16:14)
[2025-04-27] MEDS ORDERED: ASPI-325 PO (16:14)
[2025-04-27] MEDS ORDERED: DULO60CA41 PO (16:14)
[2025-04-27] MEDS ORDERED: SITA25TA3 PO (16:15)
--- NOTE | 2025-04-27 16:28 | DVHDS2 ---
Discharge Summary Date of Admission Apr 25, 2025 at 12:22 Date of Discharge: Apr 27, 2025 Labs/Diagnostic Data: Laboratory Results Test 04/27/25 10:24 04/27/25 07:43 04/26/25 06:13 04/25/25 13:49 POC Glucose 230 mg/dl (70-106) Sodium Level 138 mmol/L (136-145) Potassium Level 3.9 mmol/L (3.5-5.1) Chloride Level 105 mmol/L (98-107) Carbon Dioxide Level 25 mmol/L (20-31) Anion Gap 8 (5-15) Blood Urea Nitrogen 10 mg/dL (9-23) Creatinine 0.85 mg/dL (0.700-1.30) Glomerular Filtration Rate Calc 100 mL/min (>90) BUN/Creatinine Ratio 11.8 (10.0-20.0) Serum Glucose 183 mg/dL (74-106) Calcium Level 9.0 mg/dL (8.7-10.4) Total Bilirubin 0.7 mg/dL (0.2-1.0) Aspartate Amino Transferase (AST) 51 U/L (13-40) Alanine Aminotransferase (ALT) 34 U/L (7-40) Alkaline Phosphatase 45 U/L (46-116) Total Protein 5.7 g/dL (5.7-8.2) Albumin 3.6 g/dL (3.2-4.8) White Blood Count 5.7 10^3/uL (4.4-10.8) Red Blood Count 4.32 10^6/uL (4.5-5.90) Hemoglobin 15.3 g/dL (13.5-17.5) Hematocrit 42.8 % (41.0-53.0) Mean Corpuscular Volume 99.1 fL (80.0-100.0) Mean Corpuscular Hemoglobin 35.3 pg (28.0-32.0) Mean Corpuscular Hemoglobin Concent 35.7 g/dL (32.0-36.0) Red Cell Distribution Width 14.5 % (11.8-14.3) Platelet Count 113 10^3/uL (140-450) Mean Platelet Volume 8.9 fL (6.9-10.8) Neutrophils (%) (Auto) 67.5 % (37.0-80.0) Lymphocytes (%) (Auto) 21.1 % (10.0-50.0) Monocytes (%) (Auto) 10.8 % (0.0-12.0) Eosinophils (%) (Auto) 0.3 % (0.0-7.0) Basophils (%) (Auto) 0.3 % (0.0-2.0) Neutrophils # (Auto) 3.8 10 ^3/uL (1.6-8.6) Lymphocytes # (Auto) 1.2 10 ^3/uL (0.4-5.4) Monocytes # (Auto) 0.6 10 ^3/uL (0-1.3) Eosinophils # (Auto) 0 10 ^3/uL (0-0.8) Basophils # (Auto) 0 10 ^3/uL (0-0.2) Nucleated Red Blood Cells 0.1 % Hemoglobin A1c 11.9 % A1C (<5.7) Thyroid Stimulating Hormone (TSH) 1.78 uIU/mL (0.55-4.78) Plasma/Serum Blood Alcohol < 3.0 mg/dL (<10) Serum Osmolality 277 mOsm/kg (278-298) Phosphorus Level 2.4 mg/dL (2.4-5.1) Magnesium Level 1.6 mg/dL (1.6-2.6) Test 04/25/25 12:24 04/25/25 11:27 04/25/25 09:49 04/25/25 09:41 Blood Gas Specimen Type Arterial Blood Gas Sample Site Right radial Blood Gas Patient Temperature 37.0 Arterial Blood Date Drawn [id number] Arterial Blood pH 7.537 (7.350-7.450) Arterial Blood Partial Pressure CO2 22.1 mmHg (35.0-48.0) Arterial Blood Partial Pressure O2 90.9 mmHg (83.0-108.0) Arterial Blood HCO3 18.3 mmol/L (21.0-28.0) Arterial Blood Oxygen Saturation 97.4 % (94.0-98.0) Arterial Blood Base Excess -2.0 mmol/L (-2.0-3.0) Arterial Blood Oxyhemoglobin 95.8 % (94.0-98.0) Arterial Blood Carboxyhemoglobin 1.0 % (0.5-1.5) Arterial Blood Methemoglobin 0.6 % (0.0-1.5) Tacho Test Yes Blood Gas Total Hemoglobin 14.80 g/dL (13.5-17.5) Blood Gas Modality Room air FiO2 % 21.0 Lactic Acid Level 3.9 mmol/L (0.4-2.0) Urine Color Colorless (Yellow) Urine Clarity Clear (Clear) Urine pH 6.0 (5.0-9.0) Urine Specific [place] 1.032 (1.001-1.035) Urine Protein 1+ (Negative) Urine Ketones 2+ (Negative) Urine Blood 3+ /uL (Negative) Urine Nitrite Negative (Negative) Urine Bilirubin Negative (Negative) Urine Urobilinogen Normal mg/dL (Negative) Urine Leukocyte Esterase Negative /uL (Negative) Urine RBC 36 /hpf (0 - 3) Urine Microscopic WBC 1 /HPF (0-3) Urine Squamous Epithelial Cells None seen /hpf (<5) Urine Bacteria None seen /hpf (None Seen) Urine Glucose 4+ mg/dL (Normal) Blood Gas Liter Flow 0.00 Blood Gas Critical Value Read Back Yes Blood Gas Notified Whom eduin Lowry Blood Gas Notified Time [id number] Blood Gas Notified By david Holden 04/25/25 09:27 04/25/25 06:49 Beta-Hydroxybutyric Acid 4.104 mmol/L (< 0.4) Urine Osmolality 624 mOsm/kg Urine Sodium < 10 mmol/L (40-220) Other Laboratory Tests 04/27/25 07:43 04/26/25 06:13 Brief Hx & Hospital Course: 59-year-old male past medical history diabetes neuropathy to hands and feet hyperlipidemia denies any surgical history chief complaint patient states that he has been out of his metformin for the last two weeks he never went to go get a refill. He states he noticed that his sugars has been high he checked at one time last week when he is supposed to have an EGD was 480 so they canceled the EGD so he comes in today because he was not feeling well he feels weak numbness [place] frequent urination excessive thirst for the last two days when paramedics were called patient had a high glucose on the monitor patient states he usually takes metformin but he has been out of that patient currently denies any chest pain no shortness with the breath no abdominal pain when evaluating patient's labs and imaging from ED normal saline was given ceftriaxone insulin Zofran no CBC was unremarkable pH was 7.06 CO2 was 16.7 on ABG sodium was 122 potassium was 3.2 chloride was 84 CO2 was 17 gap was 21 glucose was 468 lactate was 7.2 total bili is 1.7 beta age is 4.104. With these findings we will admit patient to [facility]. Patient nurse had check glucose at bedside was 195. With these findings did order repeat stat CBC ABG. 04/26: Patient was here with early DKA, patient was also hyper ventilating causing alkalotic respiratory alkalosis. DKA is now controlled continuing fluids patient denies wanting to go on insulin as his family has had negative outcomes. We will stabilize patient 1 more day as he continues to improve in p.o. tolerance. Need to follow up with her more workup need A1c in labs. Likely discharge tomorrow. Patient will likely be able to go home with added orals, today we will add Jardiance and Cymbalta for diabetic neuropathy. Likely discharge tomorrow. 04/27: a1c 11. patient continues to decline insulin.. Cymbalta is helping patients neuropathy. patient BG stable. stable for discharge as plan below. diagnosis: Early DKA Starvation ketosis Diabetes with hyperglycemia and neuropathy Hypotension due to Hypovolemia Metabolic acidosis Hyponatremia Tachycardia Hyperkalemia History of alcohol abuse discharge plan: - start taking Cymbalta 30mg daily - continue metformin 1000mg 2x/day, start Jardiance 10mg daily, start Januvia 25mg daily, - continue other home medications - continue statin, lisinopril - follow-up with PCP to review discharge. Condition at Discharge: Fair Final Diagnosis/Problems List Early DKA Starvation ketosis Diabetes with hyperglycemia and neuropathy Hypotension due to Hypovolemia Metabolic acidosis Hyponatremia Tachycardia Hyperkalemia History of alcohol abuse Discharge Disposition: Home Discharge Instruct/Medications Diet: Consistent carbohydrate Activity: No Restrictions, As Tolerated Scheduled Atorvastatin Calcium (Atorvastatin Calcium), 1 TAB PO QPM, (Reported) Duloxetine Hcl (Cymbalta), 0.5 CAP PO DAILY Empagliflozin (Jardiance), 10 MG PO DAILY Ergocalciferol (Vitamin D2), 50,000 UNIT PO QWEEKLY, (Reported) Lisinopril (Lisinopril), 1 TAB PO DAILY, (Reported) Sitagliptin Phosphate (Januvia), 25 MG PO DAILY Discharge Statement: "Patient was advised to return to the ER or call 911 if any headaches, dizziness, shortness of breath, chest pain, abdominal pain, bleeding, fevers, or worsening of medical condition. Patient was counseled about treatment plan, medications, possible side effects, patientverbalized understanding. All questions were answered to the best of my ability. This discharge took greater then 30 minutes in planning, reviewing documentation, counseling the patient, and discussing with other team members." Date of Service: Apr 27, 2025 Billing Provider: JOHN BOSCH MD Common Visit Codes: [id number] DISCH DAY >30min JOHN BOSCH MD Apr 27, 2025 16:28
[2025-04-27] MEDS ORDERED: InsuLIN REG 1unit/0.01ml Soln (100units/ml) SC SCH (22:00)
== END 2025-04-27 18:45 | disposition home or self-care (01) | DRG 420 ==
LOC: EDBD 08:58 → ER 08:58 → OVERFLOW 12:22 → TELE-WESTW 17:51
PROVIDERS: ADMIT Nurse Practitioner Family; ATTEND Nurse Practitioner Family
DX: E11.10 Type 2 diabetes mellitus with ketoacidosis without coma (principal); R57.1 Hypovolemic shock; E87.3 Alkalosis; E11.40 Type 2 diabetes mellitus with diabetic neuropathy, unspecified; E87.1 Hypo-osmolality and hyponatremia; E87.5 Hyperkalemia; R00.0 Tachycardia, unspecified; E86.1 Hypovolemia; I95.89 Other hypotension; E86.0 Dehydration; E78.5 Hyperlipidemia, unspecified; F10.10 Alcohol abuse, uncomplicated; E11.65 Type 2 diabetes mellitus with hyperglycemia; Y90.9 Presence of alcohol in blood, level not specified; Z79.4 Long term (current) use of insulin; Z79.84 Long term (current) use of oral hypoglycemic drugs
CPT/HCPCS: 36415; 36600; 80048; 80053; 80320; 81001; 82010; 82805; 82962; 83036; 83605; 83735; 83930; 83935; 84100; 84300; 84443; 85025; 96361; 96365; 96375; G0378; J1815; J2405